=== PATIENT | female | born 1960 | race Caucasian/White ===

== ENCOUNTER 2020-11-13 18:12 | Emergency (ER) | payer OTHER ==
[2020-11-13 18:24] VITALS: BP 125/85; PULSE 70; TEMP 97.9; BMI 39.4
== END 2020-11-13 19:17 | disposition home or self-care (01) ==
LOC: JERFT 18:12
DX: K08.89 Other specified disorders of teeth and supporting structures (principal)
CPT/HCPCS: 99283-25

== ENCOUNTER 2024-03-28 14:14 | Emergency (ER) | payer OTHER ==
[2024-03-28 14:36] VITALS: BP 113/65; PULSE 69; RESP 19; TEMP 97.8; BMI 44.4
[2024-03-28 15:38] LABS: BASO % 0.3 % (0-2.0); EOS % 0.9 % (0-4.5); HEMATOCRIT 45.7 % (32.4-45.2); HEMOGLOBIN 15.7 GM/dL (10.7-15.3); MCH 30.5 pg (25.7-33.7); MCHC 34.4 g/dl (32.0-36.0); MEAN CELL VOLUME 88.4 fl (80-96); MEAN PLT VOLUME 9.2 fl (7.5-11.1); MONO % 15.8 % (3.8-10.2); PLATELET COUNT 209 10^3/uL (134-434); RBC 5.17 M/mm3 (3.60-5.2); RDW 12.6 % (11.6-15.6); WHITE BLOOD COUNT 6.1 K/mm3 (4.0-10.0)
[2024-03-28 15:43] LABS: VENOUS BASE EXCESS -3.1 mmol/L (-2-2); VENOUS PCO2 45.8 mmHg (38-52); VENOUS PH 7.323 (7.310-7.410)
[2024-03-28 15:45] LABS: INR 1.05 (0.83-1.09); PROTHROMBIN TIME (PATIENT) 11.9 SEC (9.7-13.0)
[2024-03-28 15:48] LABS: ACTIVATED PTT 30.3 SECONDS (25.2-36.5)
[2024-03-28 16:00] LABS: CALCIUM 9.5 mg/dL (8.5-10.1)
[2024-03-28 16:01] LABS: ALBUMIN 3.5 g/dl (3.4-5.0); BLOOD UREA NITROGEN 16.9 mg/dL (7-18); MAGNESIUM 2.4 mg/dL (1.8-2.4)
[2024-03-28 16:04] LABS: CREATININE 1.2 mg/dL (0.55-1.3)
[2024-03-28 16:05] LABS: BILIRUBIN,TOTAL 0.3 mg/dL (0.2-1); TOT PROT 7.9 g/dl (6.4-8.2)
[2024-03-28 16:09] LABS: N-TERMINAL BNP 52.6 pg/ml (5-125)
[2024-03-28 17:02] LABS: HIV INTERPRETATION NEGATIVE (NEGATIVE)
== END 2024-03-28 17:40 | disposition home or self-care (01) ==
LOC: JER 14:14
DX: U07.1 COVID-19 (principal); R07.2 Precordial pain; R06.02 Shortness of breath; M25.561 Pain in right knee; M25.461 Effusion, right knee; R61 Generalized hyperhidrosis; R11.0 Nausea; R10.9 Unspecified abdominal pain
CPT/HCPCS: 0241U-QW; 36415; 71045-TC-FY; 73562-TC-RT-FY; 80053; 82803; 83690; 83735; 83880; 84484; 85025; 85610; 85730; 86803; 86850; 86900; 86901; 87389; 93005; 93010; 99285-25